=== PATIENT | male | born 1995 | race Caucasian/White ===

== ENCOUNTER 2017-02-28 22:21 | Emergency (ER) | payer OTHER ==
[~2017-02-28] VITALS: Ht 177.8 cm; Wt 98.6 kg
[2017-02-28 22:31] VITALS: TEMP 37.5; Ht 177.8 cm; Wt 98.6 kg
--- NOTE | 2017-02-28 22:56 | EMERGENCY ROOM VISIT NOTE ---
History Report prepared by Malcolm: Hayley Leach Under the Supervision of: Dr. Camilo Valentine M.D. First contact with patient: 22:36 Chief Complaint: PENIS PAIN Stated Complaint: PAIN PELVIS R THIGH AREA, ERECTION FOR OVER 12HR History of Present Illness The patient is a 21 year old male who presents to the Emergency Room with complaints of constant penis pain beginning this morning. The patient states that he woke up this morning with what he thought was normal morning wood. He reports that his erection has not resolved since he woke up this morning and the pain is now radiating into his inner thighs. He notes that his pain is worse with walking. The patient denies any use of Viagra, drug use, alcohol use , supplement use, diabetes history, hypertension, and sickle cell history. Source of History: patient Onset: this morning Position: other (penis) Quality: other (hard) Timing: constant Modifying Factors (Worsening): other (walking) Note: The patient complains of pain in his inner thighs. He denies any drug use. Review of Systems See HPI for pertinent positives & negatives. A total of 10 systems reviewed and were otherwise negative. Past Medical & Surgical Medical Problems: (1) No Known Active Medical Problems Family History No pertinent family history stated. Social History Smoking Status: Never Smoker Marital Status: single Housing Status: lives with roommate Occupation Status: [employer] student Current/Historical Medications Scheduled Cephalexin Monohydrate (Keflex), 1 CAP PO TID Scheduled PRN Oxycodone/Acetaminophen 5MG/325MG (Percocet 5MG/325MG), 1-2 TAB PO Q4H PRN for Pain Physical Exam Vital Signs Date Time Temp Pulse Resp B/P (MAP) Pulse Ox O2 Delivery O2 Flow Rate FiO2 03/01/17 01:04 64 17 127/77 100 02/28/17 23:51 75 12 100 02/28/17 23:32 173/83 02/28/17 23:21 77 15 100 02/28/17 23:16 82 02/28/17 23:13 168/82 02/28/17 22:31 37.5 67 18 141/79 97 Room Air Physical Exam GENERAL: Patient is a healthy-appearing well-nourished male HEAD: Normocephalic atraumatic EYES: Ocular movements intact pupils equal and react to light OROPHARYNX mucous membranes are moist no exudates present no erythema or edema present NECK: Supple no nuchal rigidity CHEST: Good equal expansion LUNGS: Clear and equal to auscultation CARDIAC: Normal S1 and S2 ABDOMEN: Soft nontender no guarding BACK: No CVA tenderness EXTREMITIES: No pain upon palpation normal muscle strength in all groups no clubbing cyanosis or edema NEURO: Patient is following commands and answering questions appropriately. Alert and oriented x3 Cranial Nerves 2-12 grossly intact : Priapism present. Medical Decision & Procedures Laboratory Results Test 02/28/17 23:00 02/28/17 23:40 Urine Color DK YELLOW Urine Appearance CLEAR (CLEAR) Urine pH 5.5 (4.5-7.5) Urine Specific [place] 1.027 (1.000-1.030) Urine Protein NEG (NEG) Urine Glucose (UA) NEG (NEG) Urine Ketones TRACE (NEG) Urine Occult Blood NEG (NEG) Urine Nitrite NEG (NEG) Urine Bilirubin NEG (NEG) Urine Urobilinogen NEG (NEG) Urine Leukocyte Esterase NEG (NEG) Urine Opiates Screen NEG (NEG) Urine Methadone, Qualitative NEG (NEG) Urine Barbiturates NEG (NEG) Urine Phencyclidine (PCP) Level NEG (NEG) Ur Amphetamine/Methamphetamine NEG (NEG) MDMA (Ecstasy) Screen NEG (NEG) Urine Benzodiazepines Screen NEG (NEG) Urine Cocaine Metabolite NEG (NEG) Urine Marijuana (THC) NEG (NEG) Venous Blood pH 6.87 (7.36-7.41) Venous Blood Partial Pressure CO2 137 mmHg (38.0-50.0) Venous Blood Partial Pressure O2 12 mmHg Venous Blood HCO3 24 mmol/L Venous Blood Oxygen Saturation < 60.0 % Venous Blood Base Excess -12.8 mmol/L Labs reviewed by ED physician. Medications Administered Medications (Trade) Dose Ordered Sig/Mariah Route Start Time Stop Time Status Last Admin Dose Admin Cefazolin Sodium 2000 mg/Dextrose 60 ml @ 120 mls/hr NOW STAT IV 03/01/17 00:17 03/01/17 00:46 DC 03/01/17 00:25 120 MLS/HR Bacitracin (Bacitracin Oint) 1 appln NOW STAT EXT 03/01/17 00:49 03/01/17 00:51 DC 03/01/17 00:58 1 APPLN Oxycodone/ Acetaminophen (Percocet 5/ 325MG Home Pack) 1 homepack UD ONCE PO 03/01/17 01:00 03/01/17 01:01 DC 03/01/17 00:58 1 HOMEPACK Cephalexin Monohydrate (Keflex 500MG Home Pack) 1 homepack NOW ONCE PO 03/01/17 01:00 03/01/17 01:01 DC 03/01/17 00:58 1 HOMEPACK ED Course 2235: Past medical records reviewed. The patient was evaluated in room B4. A complete history and physical examination was performed. 2256: I spoke to Dr. Rosen about the patients case. He will be coming in to see the patient. Medical Decision Medication Reconciliation: I attest that I have personally reviewed the patient' s current medication list Blood Pressure Screening: Patient was found to have an elevated blood pressure and was referred to their primary care doctor for recheck and further treatment This is a 21-year-old male who presents emergency department complaining of priapism that has lasted at least 12 hours. Based on his complaint urology was called in. Please see separate note. The patient will be placed on Keflex and given Percocet for pain. I recommended the patient take IV Profen before the Percocet. Patient was in agreement with treatment plan. Consults Time Called: 2254 Consulting Physician: Dr. Rosen Returned Call: [address] Rosen about the patients case. He will be coming in to see the patient. Impression Primary Impression: Priapism Scribe Attestation The scribe's documentation has been prepared under my direction and personally reviewed by me in its entirety. I confirm that the note above accurately reflects all work, treatment, procedures, and medical decision making performed by me. Departure Information Dispostion Home / Self-Care Prescriptions Oxycodone/Acetaminophen 5MG/325MG (PERCOCET 5MG/325MG) Tab 1-2 TAB PO Q4H Y for Pain, #14 TAB Prov: Camilo Valentine MD 03/01/17 Cephalexin Monohydrate (Keflex) 500 Mg Cap 1 CAP PO TID for 3 Days, #9 CAP Prov: Camilo Valentine MD 03/01/17 Patient Instructions My [facility]
[2017-02-28] MEDS ORDERED: XYLOCAINE 1%/SOD BICARB 20 ML VIAL INFIL STA (23:01)
[2017-02-28 23:21] LABS: URINE APPEARANCE CLEAR (CLEAR); URINE BILIRUBIN NEG (NEG); URINE COLOR DK YELLOW; URINE NITRITE NEG (NEG); URINE PH 5.5 (4.5-7.5); URINE SPECIFIC GRAVITY 1.027 (1.000-1.030); UROBILINOGEN NEG (NEG); ZZUR CULT IF INDIC CLEAN CATCH NO
[2017-02-28 23:22] LABS: MANUAL MICROSCOPIC REQUIRED? NO; REVIEW REQ? NO
--- NOTE | 2017-02-28 23:26 | Urology Consultation ---
History General Date of Service: Feb 28, 2017. Chief Complaint: Painful and persistent erection Primary Care Physician: [facility] Pt seen a urologist before?: No History of Present Illness 21 yo male here for difficulties with undesired erection since 8 AM this morning. He reports he has been uncomfortable due to working around his erection all day. He notes he has tried ejaculating without success. He only presented to the ER due to inner thigh pain with activity. He notes his pain was in the thigh, a 1-2/10. This has not occurred to him previously. He denies the use of any medication which might have caused this. He denies a history of trauma to the pelvis or prior similar episodes. Consult completed after therapy for ischemic priapism complete. Laboratory Last 24 Hours Test 02/28/17 23:00 Urine Color DK YELLOW Urine Appearance CLEAR Urine pH 5.5 Urine Specific [place] 1.027 Urine Protein NEG Urine Glucose (UA) NEG Urine Ketones TRACE Urine Occult Blood NEG Urine Nitrite NEG Urine Bilirubin NEG Urine Urobilinogen NEG Urine Leukocyte Esterase NEG Past History no pertinent history Past Surgical History: no surgical history Social History Smoking: non-smoker Alcohol: no current use Drug use: none Marital status: single Occupation status: employed ([employer] student Medications Home Medications: Home Meds and Scripts Medications Dose Route/Sig Max Daily Dose Days Date Category No Active Prescriptions or Reported Medications Rx Inpatient Medications: Current Inpatient Medications Medications (Trade) Dose Ordered Sig/Mariah Route Start Time Stop Time Status Last Admin Dose Admin Phenylephrine HCl 5 mg/Syringe 20 ml @ 0 mls/min TODAY@2330 ITC 02/28/17 23:30 02/28/17 23:59 Review of Systems Review of Systems Constitutional: No fever, No chills Eyes: No blurred vision Gastrointestinal: No abdominal pain, No nausea, No vomiting Cardiovascular: No angina, No irregular heartbeat Respiratory: No coughing up blood Skin: No boils, No dry skin Musculoskeletal: No back pain Blood / Lymphatic: No bruise easily Ears / Nose / Throat: No hearing loss Psychologic / Mental: No trouble remembering Male : + see HPI Physical Exam Vital Signs: Vital Signs Past 12 Hours Date Time Temp Pulse Resp B/P (MAP) Pulse Ox O2 Delivery O2 Flow Rate FiO2 02/28/17 23:16 82 7/14/17 22:31 37.5 67 18 141/79 97 Room Air Physical Exam: General Appearance: WD/WN, no apparent distress ENT: normal ENT inspection, hearing grossly normal Neck: supple, no adenopathy Respiratory/Chest: no respiratory distress, no accessory muscle use Cardiovascular: no JVD Gastrointestinal: Abdomen: normal abdomen Bladder: normal bladder Renal: normal renal Hernia: absent hernia Liver: normal liver Spleen: normal spleen Genitourinary - Male: Penis: normal penis, circumcised, pertinent finding (firm, 100% erection, no skin breakdown) Urethral Meatus: normal urethral meatus Testes: normal testes Epididymides: normal epididymides Scrotum: normal scrotum Extremities: non-tender Neurologic/Psychiatric: alert, oriented x 3 Skin: normal color Assessment & Plan Assessment & Plan A/P 21 yo male with a ~15 hour history of 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 Patient on monitor. Phenylephrine 250 mcg/ml obtained from pharmacy for irrigation as well as sterile injectable saline. Risks and benefits of intervention reviewed with the patient as well as the relatively poor prognosticator afforded by the time since initiation of priapism for future sexual function. Penile block performed with ~18 cc of 1% plain lidocaine. 18 guage needles x 2 placed, proximally on right and distally on left with drainage of dark, venous urine. Blood gas sent - results also c/w ischemic priapism as well. Patient aspirated with rapid detumescence to approximately 50% erection, flushed with sterile saline with further improvement. 1-2 cc of phenylephrine irrigation provided Q3 to 5 minutes over the course of about 30 minutes with further improvement to ~20% erection, likely primarily edema. Some bruising and small hematoma noted over R proximal shaft. Pressure held manually for ~5-10 minutes, observed for another 25 minutes without recurrence of his priapism. Bacitracin ointment, sterile gauze and Cob[place] dressing placed - patient instructed on wound care, dressing x 24-48 hours, loosen if it becomes too tight with swelling. Consider Keflex 500 mg TID x 3 days, bacitracin ointment to needle sites, pain meds PRN. I will see in the office in 1-2 weeks to check on progress and healing. No sexual activity until cleared by our service.
[2017-02-28] MEDS ORDERED: PHENYLEPHRINE HCL ITC SCH (23:30)
[2017-02-28 23:44] LABS: BENZODIAZEPINE, URINE NEG (NEG); COCAINE,URINE NEG (NEG); PHENCYCLIDINE, URINE NEG (NEG)
[2017-02-28] MEDS: PHENYLEPHRINE HCL ITC SCH (23:57)
[2017-02-28 23:59] LABS: VEN BLOOD GAS BASE EXCESS -12.8 mmol/L; VENOUS BLOOD GAS PCO2 137 mmHg (38.0-50.0); VENOUS BLOOD GAS PO2 12 mmHg
[2017-03-01] MEDS ORDERED: NURSING VERBAL MED ORDER ONE
[2017-03-01 00:07] LABS: VEN BLD GAS O2 SATURATION < 60.0 %
[2017-03-01] MEDS: PHENYLEPHRINE HCL ITC SCH (00:15)
[2017-03-01] MEDS ORDERED: CEFAZOLIN SOD 2000 MG in DEXTROSE 5% 50ML IV STA (00:17)
[2017-03-01] MEDS ORDERED: BACITRACIN OINT 15 GM TUBE EXT STA (00:49)
[2017-03-01] MEDS ORDERED: CEPH500C PO (00:50)
[2017-03-01] MEDS ORDERED: OXYC-57 PO (00:51)
[2017-03-01] MEDS ORDERED: PERCOCET HOME PACK PO ONE (01:00)
[2017-03-01] MEDS ORDERED: CEPHALEXIN 500MG HOME PACK 1 EA BTL PO ONE (01:00)
[2017-03-01 01:04] VITALS: BP 127/77; PULSE 64; O2SAT 100
== END 2017-03-01 01:04 | disposition home or self-care (01) ==
LOC: C.EDB 22:23
DX: N48.30 Priapism, unspecified (principal)

== ENCOUNTER 2017-04-03 12:02 | Emergency (ER) | payer OTHER ==
[~2017-04-03] VITALS: Ht 177.8 cm; Wt 101.3 kg
[~2017-04-03 12:02] MED LIST: OXYC-57 PO
[2017-04-03 12:19] VITALS: TEMP 37.1; Ht 177.8 cm; Wt 101.3 kg
--- NOTE | 2017-04-03 13:03 | EMERGENCY ROOM VISIT NOTE ---
History First contact with patient: 12:41 Chief Complaint: PENIS PAIN Stated Complaint: ERECTION LASTING MORE THAN 4 HOURS/PRIAPISM Nursing Triage Summary: Mid February had Priapism. Dr Rosen saw him. This morning it occured. Lasted from 7:30am until 11:45 when he was waiting in the waiting room. History of Present Illness The patient is a 21 year old male who presents to the Emergency Room with complaints of priapism. The patient was seen here last month for priapism. He did have detumescence performed by Dr. Rosen. He states that he followed up with urology once. He states he also followed up with [facility]. He states that this morning he woke with an erection. He is not certain when the erection started. He states that the erection lasted for a prolonged period and therefore he came to the emergency department. While he was in the emergency department waiting room, the erection subsided. This was around 11:45 AM. The patient denies any pain. He does not take any medications. He denies drug use or supplement use. He does not take Viagra. He denies any blood or burning with urination. He denies any history of STD. The exact etiology of his priapism is not clear. Review of Systems A 10 system review of systems was completed with positives and pertinent negatives listed in the HPI. Past Medical/Surgical History Medical Problems: (1) No Known Active Medical Problems Social History Smoking Status: Never Smoker Marital Status: single Housing Status: lives with roommate Occupation Status: employed, [employer] student Current/Historical Medications No Active Prescriptions or Reported Meds Physical Exam Vital Signs Date Time Temp Pulse Resp B/P (MAP) Pulse Ox O2 Delivery O2 Flow Rate FiO2 04/03/17 13:34 62 16 145/72 97 Room Air 04/03/17 12:19 37.1 79 18 159/85 99 Room Air Physical Exam VITALS: Vitals are noted on the nurse's note and reviewed by myself. Vital signs stable. GENERAL: This is a 21-year-old male, in no acute distress, nondiaphoretic, well- developed well-nourished. SKIN: The skin was without rashes, erythema, edema, or bruising. There is no tenting of the skin. Capillary reflex less than 2 seconds. HEAD: Normocephalic atraumatic. EARS: The external ears are normal in appearance. EYES: Pupils equal round and reactive to light and accommodation. Conjunctivae without injection, sclerae without icterus. Extraocular movements intact. NOSE: Patent, turbinates without inflammation or discharge. MOUTH: Mucous membranes moist. Tongue does not deviate. NECK: Supple without nuchal rigidity. No lymphadenopathy. No thyromegaly. Cervical spine is nontender. No JVD. HEART: Regular rate and rhythm without murmurs gallops or rubs. LUNGS: Clear to auscultation bilaterally without wheezes, rales or rhonchi. No dullness to percussion. No retractions or accessory muscle use. ABDOMEN: Positive bowel sounds x 4. Normal tympanic percussion. Soft, nontender, without masses or organomegaly. [place] sign negative. MUSCULOSKELETAL: No muscle atrophy, erythema, or edema noted. Full range of motion without joint tenderness in all extremities. No tenderness to palpation. Normal gait. Strength 5/5 throughout. NEURO: Patient was alert and oriented to person place and time. Normal sensation to light and sharp touch. Deep tendon reflexes 2+ throughout. No focal neurological deficits. Medical Decision & Procedures ED Course The patient presents to the emergency department for priapism. He woke up with an erection this morning. He states that he came to the emergency department because it did not go away. However, it went away when he was in the waiting room. He was quite concerned because of his recent history of ischemic priapism that required detumescence. I discussed the case with Dr. Salazar. He recommends follow-up in the office. The patient should return to the ER with any worsening symptoms. Otherwise, he should follow up with urology for further evaluation and management. Medical Decision The differential diagnosis includes medication effect, urinary tract infection, STD, sickle cell, among others Medication Reconcilliation Current Medication List: was personally reviewed by me Impression Primary Impression: Priapism Departure Information Dispostion Home / Self-Care Condition GOOD Prescriptions No Active Prescriptions or Reported Meds Referrals No Doctor, Assigned (PCP) Ye Rosen MD, Urology Patient Instructions ED Priapism, [facility] Additional Instructions Contact urology today to schedule a follow-up appointment for further evaluation and management Return to the emergency department with recurrence of prolonged erection or any other generalized worsening symptoms
[2017-04-03 13:34] VITALS: BP 145/72; PULSE 62; O2SAT 97
== END 2017-04-03 13:37 | disposition home or self-care (01) ==
LOC: C.EDB 12:05 → C.EDD 13:37
DX: N48.30 Priapism, unspecified (principal); Z98.890 Other specified postprocedural states

== ENCOUNTER 2017-04-06 10:46 | Emergency (ER) | payer OTHER ==
[~2017-04-06] VITALS: Ht 177.8 cm; Wt 101.2 kg
[2017-04-06 10:51] VITALS: TEMP 36.7; Ht 177.8 cm; Wt 101.2 kg
[2017-04-06] MEDS ORDERED: XYLOCAINE 1%/SOD BICARB 20 ML VIAL INFIL ONE (12:05)
--- NOTE | 2017-04-06 12:53 | Urology Consultation ---
History General Date of Service: Apr 06, 2017. 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 Labs are available in the chart and at [facility] Problem List Medical Problems: (1) Priapism Status: Acute (2) Priapism Status: Acute Past History no pertinent history Past Surgical History: no surgical history Social History Smoking: non-smoker Alcohol: no current use Drug use: none Marital status: single Occupation status: employed, [employer] student Allergies Coded Allergies: No Known Allergies (Unverified , 04/06/17) Medications Home Medications: Home Meds and Scripts Medications Dose Route/Sig Max Daily Dose Days Date Category No Active Prescriptions or Reported Medications Rx Review of Systems Review of Systems Constitutional: No see HPI, No fever, No chills, No frequent headaches, No weight loss, No problem reported Eyes: No see HPI, No blurred vision, No double vision, No eye pain, No loss of night vision, No problem reported Neurological: No see HPI, No dizzy, No passing out, No numbness/tingling, No seizures, No problem reported Endocrine: No see HPI, No excessive thirst, No too hot, No too cold, No tired/ sluggish, No problem reported Gastrointestinal: No see HPI, No abdominal pain, No indigestion, No nausea, No vomiting, No constipation, No diarrhea, No problem reported Cardiovascular: No see HPI, No heart murmur, No chest pain, No angina, No irregular heartbeat, No palpitations, No swelling ankles/feet, No problem reported Respiratory: No see HPI, No shortness of breath, No wheezing, No coughing up blood, No chronic cough, No problem reported Skin: No see HPI, No rash, No boils, No dry skin, No problem reported Musculoskeletal: No see HPI, No joint pain, No neck pain, No back pain, No arthritis, No problem reported Blood / Lymphatic: No see HPI, No bleed easily, No bruise easily, No swollen glands, No problem reported Ears / Nose / Throat: No see HPI, No hearing loss, No sinus, No hoarse voice, No sore throat, No problem reported Psychologic / Mental: No see HPI, No nervous, No trouble remembering, No difficulty sleeping, No problem reported Male : + problem reported All Other Systems: Reviewed and Negative Physical Exam Vital Signs: Vital Signs Past 12 Hours Date Time Temp Pulse Resp B/P (MAP) Pulse Ox O2 Delivery O2 Flow Rate FiO2 04/06/17 12:36 73 18 149/76 98 Room Air 04/06/17 10:51 36.7 82 18 144/91 95 Physical Exam: General Appearance: WD/WN, no apparent distress Eyes: bilateral eyes normal inspection ENT: hearing grossly normal Neck: no adenopathy Respiratory/Chest: no respiratory distress, no accessory muscle use Cardiovascular: regular rate, rhythm, no edema Gastrointestinal: Abdomen: normal abdomen Genitourinary - Male: Penis: pertinent finding (tense, tender, erect) Testes: normal testes Extremities: no pedal edema, no calf tenderness Neurologic/Psychiatric: alert, normal mood/affect, oriented x 3 Skin: normal color, warm/dry Lymphatic: no adenopathy Assessment & Plan Assessment & Plan Recurrent, 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
[2017-04-06] MEDS ORDERED: PHENYLEPHRINE HCL INJ 10 MG in SYRINGE 19 ML ITC ONE (13:00)
[2017-04-06 14:53] VITALS: BP 144/78; PULSE 69; O2SAT 99
--- NOTE | 2017-04-06 19:41 | EMERGENCY ROOM VISIT NOTE ---
History Report prepared by Malcolm: Rei Edge Under the Supervision of: Dr. Gustavo Horn M.D. First contact with patient: 11:29 Chief Complaint: PENIS PAIN Stated Complaint: PRIAPISM Nursing Triage Summary: This is the pts third visit for priapism. The pt stated that he is waiting to get in to urology. He has seen Dr. Rosen and Dr. Zamorano for this in his recent visits to the ED. Pt stated that this morning he woke up with an erection around 0700. Pt states that nothing will relieve the erection. Pt states that he is concerned that this keeps happening. History of Present Illness The patient is a 21 year old male who presents to the Emergency Room with complaints of persistent priapism beginning four hours ago. The patient states that he has had this problem multiple times in the past few months and has required draining. He has been seen in the ED three times recently for the same complaint. He is currently waiting to see urology. The patient states that the pain in his penis has been worsening with his prolonged erection. He notes that he had a prolonged erection last week, which ultimately resolved on its own. He denies any recent trauma, or drug use. Pt denies LOC, headache, fevers, chills, diaphoresis, visual changes, neck pain, chest pain, breathing difficulties, nausea, vomiting, abdominal pain, back pain, melena, hematochezia, urinary symptoms, numbness, weakness, lymphadenopathy, rash, or other complaints. Source of History: patient Onset: 4 hours ago Position: other (penis) Quality: other (priapism) Timing: other (persistent) Review of Systems See HPI for pertinent positives and negatives. A total of ten systems were reviewed and were otherwise negative. Past Medical & Surgical Medical Problems: (1) No Known Active Medical Problems Family History No pertinent family history stated. Social History Smoking Status: Never Smoker Marital Status: single Housing Status: lives with roommate Occupation Status: employed, [employer] student Current/Historical Medications No Active Prescriptions or Reported Meds Allergies Coded Allergies: No Known Allergies (Unverified , 04/06/17) Physical Exam Vital Signs Date Time Temp Pulse Resp B/P (MAP) Pulse Ox O2 Delivery O2 Flow Rate FiO2 04/06/17 14:53 69 20 144/78 99 04/06/17 12:36 73 18 149/76 98 Room Air 8/20/17 10:51 36.7 82 18 144/91 95 Physical Exam GENERAL: Awake, alert, well-appearing, in no distress HENT: Normocephalic, atraumatic. Oropharynx unremarkable. EYES: Normal conjunctiva. Sclera non-icteric. NECK: Supple. No nuchal rigidity. FROM. No JVD. RESPIRATORY: Clear to auscultation. CARDIAC: Regular rate, normal rhythm. Extremities warm and well perfused. Pulses equal. ABDOMEN: Soft, non-distended. No tenderness to palpation. No rebound or guarding. No masses. RECTAL: Deferred. : Normal scrotum. Penile erection present. No discharge. MUSCULOSKELETAL: Chest examination reveals no tenderness. The back is symmetrical on inspection without obvious abnormality. There is no CVA tenderness to palpation. No joint edema. LOWER EXTREMITIES: Calves are equal size bilaterally and non-tender. No edema. No discoloration. NEURO: Normal sensorium. No sensory or motor deficits noted. SKIN: No rash or jaundice noted. Medical Decision & Procedures Medications Administered Medications (Trade) Dose Ordered Sig/Mariah Route Start Time Stop Time Status Last Admin Dose Admin Lidocaine HCl (Buffered Lidocaine 1% Inj) 20 ml STK-MED ONCE INFIL 04/06/17 12:05 04/06/17 12:06 DC 04/06/17 12:05 20 ML ED Course 1141: The patient was evaluated in room C9. A complete history and physical exam was performed. 1300: Ordered Phenylephrine HCl 10 mg/Syringe 20 mL ITC. 1313: I reassessed the patient. He has been drained, and is resting comfortable. Dr. Nelson recommends that patient wait one hour before leaving. 1426: I reevaluated the patient. Discussed results and discharge instructions: he verbalized understanding and agreement. The patient is ready for discharge. Medical Decision Triage Nursing notes reviewed. The patient's presentation and history were concerning for priapism. Patient was evaluated. He had an erection that was over 4 hours in duration. He has a history of priapism that required urologic treatment. There is no evidence of trauma, infection, or toxicologic issue by physical or history. Urology was consulted. He was evaluated in the emergency department by Dr. Nelson. He had procedural treatment for his priapism that resulted in detumescence. The patient felt much better. He was observed per recommendations by Dr. Nelson. He will be followed in the office this week. Return instructions were outlined and the patient was discharged in stable condition. Consults Time Called: 1148 Consulting Physician: Dr. Nelson -Urology Returned Call: [phone] Discussed the patient's case. Dr. Nelson will evaluate the patient. Impression Primary Impression: Priapism Scribe Attestation The scribe's documentation has been prepared under my direction and personally reviewed by me in its entirety. I confirm that the note above accurately reflects all work, treatment, procedures, and medical decision making performed by me. Departure Information Dispostion Home / Self-Care Prescriptions No Active Prescriptions or Reported Meds Referrals No Doctor, Assigned (PCP) Forms HOME CARE DOCUMENTATION FORM, IMPORTANT VISIT INFORMATION, WORK / SCHOOL INSTRUCTIONS Patient Instructions My [facility] Additional Instructions Follow-up recommendations given to you by urology. Tylenol: Take 1000 mg every 6 hours as needed for pain. Do not take more than 3000 mg in a 24 hour period. And/or Ibuprofen(Motrin, Advil) may be used for fever or pain. Use 600mg every six hours as needed. Take with food. Avoid using more than 2400mg in a 24 hour period. Do not use 2400mg per day for more than three consecutive days without physician direction. Prolonged inappropriate use can lead to stomach upset or ulcers. Return to emergency room for fever, severe pain, an erection lasting more than 2 -3 hours, inability to urinate, or as needed. Follow-up with urology this week.
== END 2017-04-06 14:56 | disposition home or self-care (01) ==
LOC: C.EDB 10:47 → C.EDC 14:56
DX: N48.30 Priapism, unspecified (principal)

== ENCOUNTER 2017-04-09 12:36 | Emergency (ER) | payer OTHER ==
[~2017-04-09] VITALS: Ht 177.8 cm; Wt 101.4 kg
[2017-04-09 12:40] VITALS: TEMP 36.8; Ht 177.8 cm; Wt 101.4 kg
--- NOTE | 2017-04-09 13:03 | EMERGENCY ROOM VISIT NOTE ---
History Report prepared by Malcolm: Juli Dahl Under the Supervision of: Dr. Joey Rios M.D. First contact with patient: 12:48 Chief Complaint: OTHER COMPLAINT Stated Complaint: PRIAPISM History of Present Illness The patient is a 21 year old male who presents to the Emergency Room with complaints of a persistent priapism that began around five hours ago. He currently rates his discomfort as a 7/10 in severity. The patient states that the pain goes between pins and needle and burning. He states that he first experienced a priapism in February and states that he had it drained. The patient states that he was placed on antibiotics after. The patient states that he was evaluated in the emergency department last for a priapism, but notes that it was alleviated while in the emergency department. He states that he was additionally here on Friday, and had it drained. The patient denies being placed on antibiotics after his most recent priapism. He states that today he has been able to urinate. The patient states that he has taken 600 mg of Ibuprofen without relief of his pain. He states that he tried icing the area and a hot shower without relief of his symptoms. The patient states that he has an appointment with urology today. The patient denies any drug or alcohol use. He denies any Viagra or Cialis use. Source of History: patient Onset: five hours ago Position: other (priapism) Symptom Intensity: 7/10 Quality: burning, other (pins and needles) Timing: other (persistent) Review of Systems See HPI for pertinent positives & negatives. A total of 10 systems reviewed and were otherwise negative. Past Medical & Surgical Medical Problems: (1) Asthma (2) Kidney stone (3) UTI (urinary tract infection) Family History Diabetes mellitus FHx: gallbladder disease Hypertension Kidney disease Kidney stones Social History Smoking Status: Never Smoker Marital Status: single Housing Status: lives with roommate Occupation Status: employed, [employer] student Current/Historical Medications Scheduled Cephalexin Monohydrate (Keflex), 500 MG PO QID Miscellaneous Medications Ibuprofen Tab (Advil), 200 MG PO Allergies Coded Allergies: No Known Allergies (Unverified , 04/06/17) Physical Exam Vital Signs Date Time Temp Pulse Resp B/P (MAP) Pulse Ox O2 Delivery O2 Flow Rate FiO2 04/09/17 14:40 69 22 134/84 95 Room Air 04/09/17 14:38 60 13 04/09/17 14:37 55 15 04/09/17 14:36 55 16 04/09/17 14:35 57 13 04/09/17 14:34 53 13 04/09/17 14:33 56 18 04/09/17 14:32 56 13 04/09/17 14:31 58 12 04/09/17 14:30 62 17 116/73 04/09/17 14:29 74 17 04/09/17 14:28 65 12 04/09/17 14:27 74 15 04/09/17 14:26 69 13 04/09/17 14:25 69 18 04/09/17 14:24 75 19 04/09/17 14:23 68 17 04/09/17 14:22 66 15 04/09/17 14:21 70 13 143/83 04/09/17 14:20 63 25 04/09/17 14:19 66 18 04/09/17 14:18 65 14 04/09/17 14:17 62 12 04/09/17 14:16 72 24 04/09/17 14:15 76 22 139/80 04/09/17 14:14 72 19 04/09/17 14:13 66 22 04/09/17 14:12 66 20 04/09/17 14:11 61 15 04/09/17 14:10 68 22 139/72 04/09/17 14:09 70 20 04/09/17 14:08 68 22 04/09/17 14:07 68 22 04/09/17 14:06 65 16 04/09/17 14:05 62 12 142/75 04/09/17 14:04 69 14 04/09/17 14:03 67 23 04/09/17 14:02 66 19 04/09/17 14:01 72 15 04/09/17 14:00 68 15 118/83 04/09/17 13:59 70 13 04/09/17 13:58 66 13 04/09/17 13:57 70 17 04/09/17 13:56 66 21 140/75 04/09/17 13:55 71 14 147/83 04/09/17 13:54 72 21 04/09/17 13:53 71 17 144/78 04/09/17 13:52 66 15 8/23/17 13:51 64 19 135/79 04/09/17 13:50 69 15 04/09/17 13:49 69 19 138/77 04/09/17 13:48 77 19 150/90 04/09/17 13:47 75 14 144/72 04/09/17 13:46 80 16 04/09/17 13:45 76 12 04/09/17 13:44 79 14 04/09/17 13:43 79 13 04/09/17 13:42 83 12 04/09/17 13:41 80 13 04/09/17 13:40 81 17 04/09/17 13:39 81 19 04/09/17 13:38 83 18 04/09/17 13:37 78 26 170/84 04/09/17 13:37 84 04/09/17 13:36 84 13 04/09/17 12:40 36.8 80 20 157/94 97 Room Air Physical Exam GENERAL: Patient is in no acute distress. HEENT: No acute trauma, normocephalic atraumatic, mucous membranes moist, no nasal congestion, no scleral icterus. NECK: No stridor, no adenopathy, no meningismus, trachea is midline. LUNGS: Clear to auscultation bilaterally, no wheeze, no rhonchi, breath sounds equal. HEART: Without murmurs gallops or rubs, regular rate and rhythm. ABDOMEN: Soft, nontender, bowel sounds positive, no hernias, no peritonitis. GROIN: No cellulitis, erection present, no hernia, normal testicles. EXTREMITIES: No cyanosis or edema, full range of motion of all the joints without pain or difficulty, no signs for acute trauma. NEUROLOGIC: Oriented x 3, no acute motor or sensory deficits, no focal weakness. SKIN: No rash, no jaundice, no diaphoresis. Medical Decision & Procedures Laboratory Results 04/09/17 14:15 Test 04/09/17 00:00 04/09/17 14:15 Venous Blood pH 7.04 (7.36-7.41) Venous Blood Partial Pressure CO2 88 mmHg (38.0-50.0) Venous Blood Partial Pressure O2 26 mmHg Venous Blood HCO3 23 mmol/L Venous Blood Oxygen Saturation < 60.0 % Venous Blood Base Excess -9.1 mEq/L Red Blood Count 5.32 M/uL (4.7-6.1) Mean Corpuscular Volume 84.0 fL (80-100) Mean Corpuscular Hemoglobin 28.4 pg (25-34) Mean Corpuscular Hemoglobin Concent 33.8 g/dl (32-36) RDW Standard Deviation 41.7 fL (36.4-46.3) RDW Coefficient of Variation 13.6 % (11.5-14.5) Mean Platelet Volume 11.4 fL (7.4-10.4) Prothrombin Time 11.4 SECONDS (9.0-12.0) Prothromb Time International Ratio 1.1 (0.9-1.1) Activated Partial Thromboplast Time 29.7 SECONDS (21.0-31.0) Partial Thromboplastin Ratio 1.1 Medications Administered Medications (Trade) Dose Ordered Sig/Mariah Route Start Time Stop Time Status Last Admin Dose Admin Lidocaine HCl (Xylocaine 1% Inj (Local)) 20 ml STK-MED ONCE .ROUTE 04/09/17 13:40 04/09/17 13:41 DC 04/09/17 14:24 20 ML ED Course 1252: The patient was evaluated in room B11B. A complete history and physical exam was performed. 1257: I discussed the patients case with Jessica [facility] ANAT[facility]. She will get a hold of a urologist to come evaluate the patient. 1445: I spoke to Dr. Medrano, Urology. He states that the patient should be placed on Keflex for a week and can be discharged to follow up with them in the office. 1448: Ordered Keflex Cap 500 mg PO. 1451: I reevaluated the patient and he is doing well. I discussed all the exam findings with him and I discussed the treatment plan. He verbalized complete understanding and agreement. He is ready to go home. Medical Decision The patient is a 21 year old male who presents to the ED with complaints of a persistent priapism. Differential diagnoses considered include Priapism, coagulopathy, ischemia, urinary retention, hernia, medication misuse. The patient presents with priapism. He has had this erection for at least 5 hours, possibly longer as he woke up with the issue. He denies any medication use that might prompt the erection. He has had this issue multiple times in the past and has had to undergo venous drainage with urology. I spoke with urology, Dr. Medrano saw the patient in the ER for urologic intervention. The patient has undergone his urologic procedure. He feels improved. The urologist asked that I order Keflex [address] the patient on Keflex as an outpatient. Patient will be seen in the outpatient office for a recheck. Laboratory testing was ordered by urology. Consults Time Called: 1255 Consulting Physician: Fabrizio Brennan Returned Call: [phone] I discussed the patients case with Fabrizio Brennan. She will get a hold of a urologist to come evaluate the patient. Impression Primary Impression: Priapism Scribe Attestation The scribe's documentation has been prepared under my direction and personally reviewed by me in its entirety. I confirm that the note above accurately reflects all work, treatment, procedures, and medical decision making performed by me. Departure Information Dispostion Home / Self-Care Prescriptions Cephalexin Monohydrate (Keflex) 500 Mg Cap 500 MG PO QID, #28 CAP Prov: Joey Rios M.D. 04/09/17 Referrals No Doctor, Assigned (PCP) Tejas Escalera D.O. Forms HOME CARE DOCUMENTATION FORM, IMPORTANT VISIT INFORMATION, WORK / SCHOOL INSTRUCTIONS Patient Instructions My [facility] [employer] Additional Instructions keflex 4x per day for 1 week follow with urology as scheduled return if worsening as discussed
[2017-04-09] MEDS ORDERED: IBUP-103 PO (13:15)
[2017-04-09] MEDS ORDERED: PHENYLEPHRINE HCL INJ 10 MG in SYRINGE 19 ML ITC ONE ×2 (13:30→14:00)
[2017-04-09] MEDS ORDERED: LIDOCAINE HCL 1% 20 ML VIAL ONE (13:40)
[2017-04-09] MEDS ORDERED: XYLOCAINE 1%/SOD BICARB 20 ML VIAL INFIL ONE (13:41)
[2017-04-09 14:11] LABS: VEN BLD GAS O2 SATURATION < 60.0 %; VEN BLOOD GAS BASE EXCESS -9.1 mEq/L; VENOUS BLOOD GAS PCO2 88 mmHg (38.0-50.0); VENOUS BLOOD GAS PO2 26 mmHg
[2017-04-09] MEDS ORDERED: CEPHALEXIN MONOHYDRATE 250 MG CAP PO STA (14:48)
[2017-04-09 14:49] LABS: HEMATOCRIT 44.7 % (42-52); MEAN CORPUSCULAR HEMOGLOBIN 28.4 pg (25-34); MEAN CORPUSCULAR HGB CONC 33.8 g/dl (32-36); MEAN PLATELET VOLUME 11.4 fL (7.4-10.4); PLATELET COUNT 278 K/uL (130-400); RED BLOOD COUNT 5.32 M/uL (4.7-6.1); WHITE BLOOD COUNT 8.52 K/uL (4.8-10.8)
[2017-04-09] MEDS ORDERED: CEPH500C PO (14:51)
[2017-04-09 14:59] LABS: INR 1.1 (0.9-1.1); PARTIAL THROMBOPLASTIN RATIO 1.1; PROTHROMBIN TIME (PATIENT) 11.4 SECONDS (9.0-12.0)
[2017-04-09 15:06] LABS: BUN/CREATININE RATIO 14.4 (10-20); CALCIUM 8.9 mg/dl (8.5-10.1); CREATININE 0.95 mg/dl (0.60-1.40); POTASSIUM 3.8 mmol/L (3.5-5.1)
--- NOTE | 2017-04-09 15:24 | GENITOURINARY CONSULTATION ---
DATE OF CONSULTATION: 04/09/2017 REASON FOR THE CONSULT: Recurrent priapism. HISTORY OF PRESENTATION: The patient is a 21-year-old male who presents for the 4th time to the Emergency Room, the 3rd time requiring treatment with priapism, the first began in mid February of this year. He was seen by Dr. Rosen initially after a 15-hour priapism that required phenylephrine as well as irrigation to normalize. The patient was discharged and did not have any recurrences until about 1 week ago when he had a recurrence, presented back to the Emergency Room, although the priapism resolved and then he was seen last Friday by Dr. Nelson with priapism that required injection of phenylephrine and irrigation. The patient was to see Dr. Rosen in follow up today in our office at 4:30, but had an erection that started this morning at 8:00 and did not resolve, presented to the hospital for definitive treatment. I was asked to see the patient. I did see him, he is having a moderate amount of pain with a rigid erection. He denies any use of Cialis, Viagra or any other medications except for ibuprofen. He denies any known bleeding disorders. He denies any known trauma to this area. Of note, Dr. Rosen stated that he previously had a blood gas indicated ischemic priapism. The patient was given informed consent regarding placing a needle to irrigate the penis and remove some blood. He says he has high normal blood pressure and was somewhat nervous with systolic blood pressure of 170, but after discussing things with him, he seemed to settle down. PAST MEDICAL HISTORY: The patient's past medical history is essentially negative for surgery and medical problems. He denies any chronic medications. He is a [employer] student. He does have a past medical history of asthma, kidney stones and urinary tract infections. He is a nonsmoker. He does have a significant other. He is a [employer] student. PHYSICAL EXAMINATION: HEENT: Unremarkable. GENERAL: The patient is in [id number] distress. HEENT: Unremarkable. NECK: Normal. LUNGS: Without apparent respiratory distress. HEART: Normal rate and rhythm on pulse. VITAL SIGNS: Peak blood pressure is 170 when I first saw him prior to administration of medications and then after that the peak blood pressure was 140 after administration of phenylephrine. ABDOMEN: Soft. GENITOURINARY: The patient had a rigid erection with some ecchymosis on the left side of the penis where Dr. Nelson had previously irrigated him 4 days ago. EXTREMITIES: Unremarkable. GROIN: Unremarkable. NEUROLOGIC: He is alert and oriented without obvious focal sensory deficits. PROCEDURE: The patient was washed with Betadine and had a drape placed. In the mid right side of the shaft laterally, I was able to make the wheal with 1% lidocaine without epinephrine and then put a 21-Malagasy butterfly needle into the patient and withdrew approximately 40-50 mL of dark blood. Then irrigated somewhat and withdrew another 10-20 mL and there was some resolution of his erection and the patient felt better. I then injected 0.5 mL of 500 mcg of phenylephrine per milligram and then irrigated again and then after 5 minutes, withdrew a little bit more, waited 10 minutes and his blood pressure remained normal and actually went down to 118/70. The penis still was erect, although not as rigid as previously. I did withdrew another 10-15 mL of dark blood. I had to irrigate a little more and then inject another 0.4 mL of phenylephrine and again there was some improvement. I waited another 10-15 minutes and the blood pressure remained stable in the 120-130 area. There was still somewhat of an erection, although it was not as rigid as before but still clearly partially erect. I was able to do this minimal bending with examination, whereas before, I was unable to. At this point, I withdrew another 20 mL of dark red blood and 3 mL for blood gas and irrigated again a little bit and then injected 0.3-0.4 of phenylephrine again, irrigated slightly to make sure this was all the way into the plastic of the butterfly. I then waited and the penis completely deflated. I then withdrew the needle, but applied pressure for 2-3 minutes with direct pressure on the injection site. I then put a dressing on with a 4 x 4 and a tape. I did draw a CBC, a PRP and a PT, PTT. The patient had stated that his mother suggested that he go to [facility] for evaluation which is fine. We will attempt to arrange this for him. I have asked the patient to wait for another half an hour to make sure his blood pressure remains normal and that there is no recurrence of the priapism. WILMA
[2017-04-09 15:54] VITALS: BP 148/72
[2017-04-09 16:00] VITALS: PULSE 72; O2SAT 98
== END 2017-04-09 16:01 | disposition home or self-care (01) ==
LOC: C.EDB 12:38
DX: N48.30 Priapism, unspecified (principal); J45.909 Unspecified asthma, uncomplicated; Z83.3 Family history of diabetes mellitus; Z82.49 Family history of ischemic heart disease and other diseases of the circulatory system

== ENCOUNTER 2017-04-16 11:50 | Emergency (ER) | payer OTHER ==
[~2017-04-16] VITALS: Ht 180.3 cm; Wt 101.2 kg
[~2017-04-16 11:50] MED LIST changes: +CEPH500C PO; +IBUP-103 PO; -OXYC-57 PO
[2017-04-16 11:57] VITALS: TEMP 36.9; Ht 180.3 cm; Wt 101.2 kg
[2017-04-16] MEDS ORDERED: PHENYLEPHRINE HCL ITC SCH (13:00)
[2017-04-16] MEDS ORDERED: PHENYLEPHRINE HCL INJ 10 MG in SYRINGE 19 ML ITC ONE (13:00)
[2017-04-16 13:02] LABS: URINE APPEARANCE CLEAR (CLEAR); URINE BILIRUBIN NEG (NEG); URINE COLOR YELLOW; URINE NITRITE NEG (NEG); URINE SPECIFIC GRAVITY 1.016 (1.000-1.030); UROBILINOGEN NEG (NEG); ZZUR CULT IF INDIC CLEAN CATCH NO
--- NOTE | 2017-04-16 13:02 | EMERGENCY ROOM VISIT NOTE ---
History First contact with patient: 12:21 Chief Complaint: PENIS PAIN Stated Complaint: PRIAPISM Nursing Triage Summary: C/o pain and priapism - states had injections and draining with no relief. Today last day of ABX History of Present Illness The patient is a 21 year old male who presents to the Emergency Room via private vehicle with complaints of "priapism". The patient states that he has been experiencing sustained erection since February. He states that he has been here numerous times to have the erection decreased. He states that he has had have injections, as well as blood drawn from this region. He states that he this past Friday went to see [facility], urologic specialists who recommended that he take Sudafed when he receives erection, and is to return to their facility in 6 weeks for an ultrasound. He states unfortunately he woke today, around 8 AM with an erection. It is been about 4.5 hours sustained. He has tried numerous modalities to decrease this, however it is persistent. At this time he notes a pins and needle sensation/burning pain in the penis itself rated as a 7/10. Review of Systems A complete 10-point Review of Systems was discussed with the patient, with pertinent positives and negatives listed in the History of Present Illness. All remaining Review of Systems questions can be considered negative unless otherwise specified. Past Medical/Surgical History Medical Problems: (1) Asthma (2) Kidney stone (3) UTI (urinary tract infection) Family History Diabetes mellitus FHx: gallbladder disease Hypertension Kidney disease Kidney stones Social History Smoking Status: Never Smoker Marital Status: single Housing Status: lives with roommate Occupation Status: employed, [employer] student Current/Historical Medications Scheduled Cephalexin Monohydrate (Keflex), 500 MG PO QID Pseudoephedrine (Sudafed), 60 MG PO DAILY Physical Exam Vital Signs Date Time Temp Pulse Resp B/P (MAP) Pulse Ox O2 Delivery O2 Flow Rate FiO2 04/16/17 13:26 78 18 142/91 99 04/16/17 11:57 36.9 73 18 144/86 99 Room Air Physical Exam VITAL SIGNS - Vital signs and nursing notes were reviewed. Afebrile, hypertensive 144/86, non-tachycardic and is saturating well on room air 99%. GENERAL -21-year-old male appearing his stated age who is in no acute distress. Communicates well with provider and answers questions appropriately. SKIN - Without rashes. No petechial rashes. HEAD - NC/AT. LUNGS - Chest wall symmetric without accessory muscle use, intercostals retractions, or central cyanosis. Normal vesicular breath sounds CTA B/L. No wheezes, rales, or rhonchi appreciated. CARDIAC - RRR with S1/S2. No murmur, rubs, or gallops appreciated. GROIN: Erection present. No evidence of cellulitis. Testicles normal. No hernia. NEUROLOGIC - Cranial nerves II through XII grossly intact. Medical Decision & Procedures Laboratory Results Test 04/16/17 12:40 Urine Color YELLOW Urine Appearance CLEAR (CLEAR) Urine pH 7.0 (4.5-7.5) Urine Specific [place] 1.016 (1.000-1.030) Urine Protein NEG (NEG) Urine Glucose (UA) NEG (NEG) Urine Ketones NEG (NEG) Urine Occult Blood NEG (NEG) Urine Nitrite NEG (NEG) Urine Bilirubin NEG (NEG) Urine Urobilinogen NEG (NEG) Urine Leukocyte Esterase NEG (NEG) Medical Decision Patient was seen and evaluated as above. He presents to us today with a sustained erection 4.5 hours. He has been seen here numerous times in the past for such. The patient is very pleasant, and notes that he is experiencing some pain. I did discuss the case with the on-call urologist, Dr. Rosen. In reviewing the patient's previous visits, it appears that he is taken care of the patient in the past. Dr. Rosen recommends drawing up strange is a phenylephrine for priapism, and 5 different syringes and then having the patient could record his office to have these injected. I do with this is reasonable, and pharmacy mix these and 5 syringes, presented to the patient in a sealed bag which she is under good record of Dr. Rosen's office. He is to return if worsening. I do believe that this is a reasonable strategy. Patient was educated upon worrisome symptoms which return, had questions prior to discharge, and was discharged. Patient's urinalysis was unremarkable. In evaluation treatment this patient the following differential diagnoses were entertained: Priapism, testicular torsion, among others. Impression Primary Impression: Priapism Departure Information Dispostion Home / Self-Care Condition GOOD Referrals Naomi Goel M.D. (PCP) Ye Rosen MD, Urology Patient Instructions My [facility] Additional Instructions You were seen in the emergency Department for priapism. At this time Dr. Rosen would like to see you in his office. Please go directly there. Please take the syringes to his office for management. Please return the emergency department with any new/persistent symptoms.
[2017-04-16 13:05] LABS: MANUAL MICROSCOPIC REQUIRED? NO; REVIEW REQ? NO
[2017-04-16] MEDS ORDERED: PSEU30TA20 PO (13:11)
[2017-04-16 13:26] VITALS: BP 142/91; PULSE 78; O2SAT 99
== END 2017-04-16 13:30 | disposition home or self-care (01) ==
LOC: C.EDB 11:52 → C.EDC 13:30
DX: N48.30 Priapism, unspecified (principal); J45.909 Unspecified asthma, uncomplicated; Z87.442 Personal history of urinary calculi; Z87.440 Personal history of urinary (tract) infections; Z83.3 Family history of diabetes mellitus; Z83.79 Family history of other diseases of the digestive system; Z82.49 Family history of ischemic heart disease and other diseases of the circulatory system; Z84.1 Family history of disorders of kidney and ureter

== ENCOUNTER 2017-04-18 12:31 | Emergency (ER) | payer OTHER ==
[~2017-04-18] VITALS: Ht 177.8 cm; Wt 100.0 kg
[~2017-04-18 12:31] MED LIST changes: -IBUP-103 PO; +PSEU30TA20 PO
[2017-04-18 12:38] VITALS: Ht 177.8 cm; Wt 100.0 kg
[2017-04-18] MEDS ORDERED: OXYCODONE/ACETAMINOPHEN 5-325 TAB PO STA (14:10)
[2017-04-18] MEDS: PHENYLEPHRINE HCL ITC SCH ×4 (14:15→14:18)
[2017-04-18] MEDS ORDERED: PHENYLEPHRINE HCL INJ 10 MG in SYRINGE 19 ML ITC ONE (14:30)
[2017-04-18] MEDS ORDERED: LIDOCAINE HCL 1% 20 ML VIAL ONE (15:22)
[2017-04-18] MEDS ORDERED: LIDOCAINE HCL 1% 20 ML VIAL INFIL ONE (15:30)
--- NOTE | 2017-04-18 16:07 | Urology Consultation ---
Urology Consultation Date of Service Apr 18, 2017. Urology Consultation It is a 21-year-old white male who has intermittent bouts of priapism. He is currently undergoing a workup for this problem. He was seen 2 days ago with priapism which was detumesced with Mukund-Synephrine and irrigation. He says again this morning he woke up with an erection that would not go down. Says they are not from sexual stimulation. He is not taking any medications that would do this or injecting himself with any medications that would do this. He had been taking Sudafed and attempt to help prevent the priapism. Procedure Patient had a rigid erection. The skin over the right corporal body was prepped with an alcohol prep. A small skin wheal was used for skin anesthesia using 1% plain lidocaine. An 18-gauge needle was then inserted into the right corporal body. Dark blood was aspirated from the corpora. He was to corpora was then injected was 250 g of Mukund-Synephrine. This was left to dwell for 5 minutes corpora was then re-aspirated and another 250 g was injected into the corpora this procedure was repeated 5 times. Patient's phallus then was detumesced. Needle was removed the wound was washed and dried age and was to be observed for one hour to make sure that the erection did not come back. He was monitored with blood pressure and pulse monitors throughout the procedure vitals remained stable. I think the plan at this time is to bring the patient for office and teach him to do these corporal procedures himself. He is currently in the middle of an evaluation for the problem. He'll return if he has any problems I will start him on Keflex to help prevent infection
[2017-04-18 17:48] VITALS: BP 130/72; PULSE 68; TEMP 36.8; O2SAT 97
--- NOTE | 2017-04-18 18:59 | EMERGENCY ROOM VISIT NOTE ---
History First contact with patient: 13:02 Chief Complaint: PENIS PAIN Stated Complaint: PRIOPISM Nursing Triage Summary: Patient has had erection since this morning tried to call Dr Costa office and states there was not an answer. Patient here ealier this week with same. History of Present Illness The patient is a 21 year old male who presents to the Emergency Room with complaints of persistent erection for the past 5 hours. The patient has had 5 previous episodes of this over the past 2 months. He is well established with urology locally as he has required procedural intervention at each of these previous 5 episodes. The patient states that he awoke at 8 AM this morning with the erection. The erection did not resolve after 20-30 minutes, and he attempted to contact the urology office. He was not able to speak with urology , and now presents to the emergency department for evaluation. He is complaining of pain which she rates an 8/10. He does not have known injury to the penis or perineal region. He does not take supplements or abuse drugs. He has had blood work previously here, but has not had sickle cell testing. He is evidently in contact with specialists at [place] who are evaluating his case. He has not had fever or chills. Review of Systems More than 10 systems were reviewed and otherwise negative with the exception of history of present illness. Past Medical/Surgical History Medical Problems: (1) Asthma (2) Kidney stone (3) UTI (urinary tract infection) Family History Diabetes mellitus FHx: gallbladder disease Hypertension Kidney disease Kidney stones Social History Smoking Status: Never Smoker Marital Status: single Housing Status: lives with roommate Occupation Status: employed, [employer] student Current/Historical Medications No Active Prescriptions or Reported Meds Physical Exam Vital Signs Date Time Temp Pulse Resp B/P (MAP) Pulse Ox O2 Delivery O2 Flow Rate FiO2 04/18/17 17:48 68 16 130/72 97 Room Air 04/18/17 17:48 36.8 68 16 130/72 97 04/18/17 17:10 46 16 130/68 96 Room Air 04/18/17 16:04 46 16 140/83 96 Room Air 04/18/17 15:17 45 16 157/83 97 Room Air 04/18/17 14:40 45 16 162/99 98 Room Air 04/18/17 12:38 36.8 75 20 149/94 97 Room Air Pain Rating (0-10): 2.0 Physical Exam VITALS: Vitals are noted on the nurse's note and reviewed by myself. Vital signs stable. GENERAL: Well-developed, well-nourished, white male who appears moderately uncomfortable HEART: Regular rate and rhythm without murmurs gallops or rubs. LUNGS: Clear to auscultation bilaterally without wheezes, rales or rhonchi. No retractions or accessory muscle use. ABDOMEN: Positive normal bowel sounds x 4. Soft, nontender, without masses or organomegaly. No guarding or rebound tenderness. : Circumcised male phallus is erect without significant discoloration. Area is diffusely tender. Medical Decision & Procedures Laboratory Results Test 04/18/17 16:04 Medications Administered Medications (Trade) Dose Ordered Sig/Mariah Route Start Time Stop Time Status Last Admin Dose Admin Oxycodone/ Acetaminophen (Percocet 5-325mg Tab) 2 tab NOW STAT PO 04/18/17 14:10 04/18/17 14:11 DC 04/18/17 14:22 2 TAB ED Course Physical exam and history were performed. Nursing notes, EMR, and Medication List were personally reviewed. Patient appears to have priapism for roughly the past 5 hours. The patient was given 2 oxycodone by mouth here in the department. I discussed the case with urology, who evaluated the patient here in the department. The patient was treated with phenylephrine injection and blood drainage by urology here in the department. Please see their dictation for specifics regarding this procedure. The patient was monitored for about 90 minutes after the procedure and did not have any return of the priapism. He has not had testing for sickle cell, and urology did request that we order this, and this was performed. He has an appointment in [address] Rosen, and was asked to keep this appointment. He was otherwise invited back to the ER with any new, worsening, or concerning symptoms. He rated his discomfort a 2/10 at the time of departure. The chart was completed utilizing [employer] Speech Voice Recognition Software. Grammatical errors, random word insertions, pronoun errors, and incomplete sentences are an occasional consequence of this system due to software limitations, ambient noise, and hardware issues. Any formal questions or concerns about the content, text, or information contained within the body of this dictation should be directly addressed to the provider for clarification. . Medical Decision Differential diagnoses includes, but is not limited to: Priapism, infection, neurologic disorder, cancer, hematologic disorder, and others Impression Primary Impression: Priapism Departure Information Dispostion Home / Self-Care Condition GOOD Prescriptions No Active Prescriptions or Reported Meds Referrals Naomi Goel M.D. (PCP) Ye Rosen MD, Urology Forms WORK / SCHOOL INSTRUCTIONS, HOME CARE DOCUMENTATION FORM, IMPORTANT VISIT INFORMATION Patient Instructions [facility] Additional Instructions You were seen and evaluated today on an emergency basis only. This is not a substitute for, or an effort to provide, complete comprehensive medical care. It is not possible to recognize and treat all injuries or illnesses in a single emergency department visit. For this reason it is recommended that you followup with Dr. Rosen's office as scheduled next week for ongoing care. You are welcome to return to the emergency department anytime with new, worsening, or concerning symptoms.
== END 2017-04-18 17:49 | disposition home or self-care (01) ==
LOC: C.EDB 12:33 → C.EDA 17:49
DX: N48.30 Priapism, unspecified (principal); J45.909 Unspecified asthma, uncomplicated; Z87.442 Personal history of urinary calculi; Z87.440 Personal history of urinary (tract) infections; Z83.3 Family history of diabetes mellitus; Z83.79 Family history of other diseases of the digestive system; Z82.49 Family history of ischemic heart disease and other diseases of the circulatory system; Z84.1 Family history of disorders of kidney and ureter

== ENCOUNTER 2017-07-18 10:51 | Emergency (ER) | payer OTHER ==
[~2017-07-18] VITALS: Ht 180.3 cm; Wt 99.0 kg
[~2017-07-18 10:51] MED LIST changes: -CEPH500C PO; +PHEN1LIQ PO; -PSEU30TA20 PO; +PSEU30TA3 PO
[2017-07-18 11:02] VITALS: TEMP 36.9; Ht 180.3 cm; Wt 99.0 kg
[2017-07-18] MEDS ORDERED: PHENYLEPHRINE HCL ITC SCH (14:15)
[2017-07-18 14:35] VITALS: BP 130/70; PULSE 80; O2SAT 98
--- NOTE | 2017-07-18 19:09 | EMERGENCY ROOM VISIT NOTE ---
History Report prepared by Malcolm: Diaz Solis Under the Supervision of: Dr. Avila Hopson M.D. First contact with patient: 12:49 Chief Complaint: PENIS PAIN Stated Complaint: PRIAPISM Nursing Triage Summary: pt to the ED with pripism again today started this am History of Present Illness The patient is a 21 year old male who presents to the Emergency Room with complaints of resolved priapism that occurred this morning. The patient states that he has been having episodes of priapism starting in February, and the urologists have not been able to figure out why it is happening. He states that he used to get it once every 3-4 weeks, though now it is almost daily. The patient states that he takes Sudafed, and he gives himself phenylephrine injections which help. He states that he had a phenylephrine injection two days ago, and he has run out of the injection, and he will not be getting more for three days. The patient states that his priapism is spontaneous when he wakes up. The patient states that the urologist is unsure of the cause, and they are going to follow up with him in July after he graduates. They state that they may start him on Viagra once he graduates. He states that the priapism seems to have gone better since he got here. He states that he does not have any sickle cells anemia, and he denies any headache, chest pain, and shortness of breath. Source of History: patient Onset: this morning Position: other (penis) Quality: other (priapism) Timing: resolved Associated Symptoms: No headache, No chest pain, No SOB Review of Systems See HPI for pertinent positives & negatives. A total of 10 systems reviewed and were otherwise negative. Past Medical & Surgical Medical Problems: (1) Asthma (2) Kidney stone (3) UTI (urinary tract infection) Family History Diabetes mellitus FHx: gallbladder disease Hypertension Kidney disease Kidney stones Social History Smoking Status: Never Smoker Marital Status: single Housing Status: lives with roommate Occupation Status: employed, [employer] student Current/Historical Medications Scheduled Pseudoephedrine Hcl (Sudafed Nasal Decongestan), 2 TAB PO Q6 Scheduled PRN Phenylephrine-Brompheniramine- (Rynex Dm), 2.5 ML PO Q6H PRN for Pain Allergies Coded Allergies: No Known Allergies (Unverified , 07/18/17) Physical Exam Vital Signs Date Time Temp Pulse Resp B/P (MAP) Pulse Ox O2 Delivery O2 Flow Rate FiO2 07/18/17 14:35 80 18 130/70 98 07/18/17 11:02 36.9 86 16 152/71 99 Physical Exam Constitutional: Vital signs reviewed. Eyes: Pupils are equal round reactive to light. Conjunctiva are noninjected. ENT: Pharynx is clear without erythema or exudate. Mucous membranes are moist. Neck supple without meningeal signs. Respiratory: Clear to auscultation bilaterally. Breath sounds are equal bilaterally. Cardiovascular: Regular rate and rhythm. No rubs or gallops. GI: Soft, nondistended and nontender. Bowel sounds are present. Musculoskeletal: No peripheral edema. No lower extremity tenderness. : Flaccid penis. Bilateral skin wheals consistent with injections to the penis. No signs of infection or hematoma. Integumentary: No cyanosis. Neurological: The patient is awake and alert. No focal deficits. Psychiatric: Normal affect. Medical Decision & Procedures Medications Administered Medications (Trade) Dose Ordered Sig/Mariah Route Start Time Stop Time Status Last Admin Dose Admin Phenylephrine HCl 0.1 mg/Syringe 1.01 ml @ 0 mls/min Q15M ITC 07/18/17 14:15 07/18/17 14:51 DC 07/18/17 14:15 2 MLS/MIN ED Course 1249: The patient was evaluated in room C4. A complete history and physical exam was performed 1336: I reevaluated the patient, and he is getting his syringes, and he is going to be discharged home. Medical Decision This is a 21-year-old male presents with spontaneous priapism. I did perform a limited focused review of portions of the patient's old chart on the electronic medical record. The patient was here two days ago for priapism. Patient injected himself with phenylephrine and he felt better. I did evaluate the patient as noted above. He is here frequently for priapism. He has had multiple episodes since this summer. He has been seen by urology here as well as at [facility]. He self injects with phenylephrine at home but unfortunately he did not have any with him and will not be able to get any till Friday. He did develop priapism this morning but upon arrival here his priapism is resolved. He has no complaints at this time. I did have the ED pharmacist talked to the patient. We were able to provide him with enough doses of phenylephrine to get him through the weekend. He was discharged in good condition. Medication Reconcilliation Current Medication List: was personally reviewed by me Blood Pressure Screening Patient's blood pressure: Elevated blood pressure Blood pressure disposition: Referred to PCP Impression Primary Impression: Robby Scribe Attestation The scribe's documentation has been prepared under my direct and personally reviewed by me in its entirety. I confirm that the note above accurately reflects all work, treatment, procedures, and medical decision making performed by me. Departure Information Dispostion Home / Self-Care Referrals Naomi Goel M.D. (PCP) Forms HOME CARE DOCUMENTATION FORM, IMPORTANT VISIT INFORMATION, WORK / SCHOOL INSTRUCTIONS Patient Instructions ED Robby, My [facility] Additional Instructions You have been examined and treated today on an emergency basis only. This is not a substitute for, or an effort to provide, complete comprehensive medical care. It is impossible to recognize and treat all injuries or illnesses in a single emergency department visit. It is therefore important that you follow up closely with your physician. Call as soon as possible for an appointment. Return for worsening symptoms or if you develop abdominal pain, vomiting, redness or discharge from the penis or injection sites, or any other concerning symptoms.
== END 2017-07-18 14:35 | disposition home or self-care (01) ==
LOC: C.EDB 10:52 → C.EDC 14:35
DX: N48.30 Priapism, unspecified (principal); J45.909 Unspecified asthma, uncomplicated; Z83.3 Family history of diabetes mellitus; Z82.49 Family history of ischemic heart disease and other diseases of the circulatory system; Z84.1 Family history of disorders of kidney and ureter; Z83.79 Family history of other diseases of the digestive system